=== PATIENT | female | born 1960 | race Caucasian/White ===

== ENCOUNTER 2018-04-10 00:52 | Inpatient (IN) | payer BC ==
[2018-04-10] VITALS (19 sets, daily range): BP systolic 107–174; BP diastolic 53–129
[~2018-04-10] VITALS: Ht 157.5 cm; Wt 87.9 kg
[2018-04-10 02:10] LABS: HEMATOCRIT 42.6 % (36.0-46.0); HEMOGLOBIN 15.1 G/DL (11.9-15.5); MCH 33.8 PG (29.0-34.0); MCHC 35.4 G/DL (30.0-36.0); MCV 95.3 FL (83-99); PLATELET COUNT 333 K/uL (156-360); RBC DIS.WIDTH-CV 12.5 % (11.8-14.6); RBC DIS.WIDTH-SD 43.1 % (39-53); RED BLOOD COUNT 4.47 M/uL (3.80-5.20); WHITE BLOOD COUNT 28.3 K/uL (4.1-10.2)
[2018-04-10 02:20] LABS: ALBUMIN 4.1 g/dL (3.2-4.8); CHLORIDE 100 mEq/L (99-109); POTASSIUM 3.3 mEq/L (3.7-5.4); SODIUM 136 mEq/L (136-147)
[2018-04-10 02:22] LABS: GLUCOSE 150 mg/dL (70-99); TOTAL PROTEIN 8.4 g/dL (6.4-8.3)
[2018-04-10 02:24] LABS: TOTAL BILIRUBIN 1.1 mg/dL (0.0-1.0)
[2018-04-10 02:26] LABS: ALKALINE PHOSPHATASE 94 IU/L (3-129); CREATININE 0.7 mg/dL (0.6-1.3); GFR ESTIMATE (CALCULATED) > 59 mL/min/
[2018-04-10 02:27] LABS: UREA NITROGEN (BUN) 12 mg/dL (9-23)
[2018-04-10 02:28] LABS: AST (GOT) 37 IU/L (2-34)
[2018-04-10 02:29] LABS: ALT (GPT) 37 IU/L (3-49)
[2018-04-10 02:41] LABS: MONOSPOT (MONONUCLEOSIS SEROL) NEGATIVE
[2018-04-10 06:38] LABS: INTER. NORMALIZED RATIO 1.2
[2018-04-10 06:41] LABS: PTT 30.7 SEC (25-37)
[2018-04-10 09:06] LABS: DEVICE VENT; FI02 50 %; MODE SPONT PS; SITE LR; TOTAL RESP RATE 24 resp/min
[2018-04-10 09:07] LABS: BASE EXCESS -1.8 mEq/L (-3 to +3); BICARBONATE 23.1 mEq/L (22-26); METHEMOGLOBIN 1.2 % (0-1.5); PCO2 39 mm Hg (35-45); PEEP 5 CM/H20; PO2 79 mm Hg (80-100); PRES. SUPPORT 10 CM/H2O; pH 7.38 (7.35-7.45)
[2018-04-10 10:15] LABS: TRIGLYCERIDES 118 MG/DL (Normal: <150)
[2018-04-11] VITALS (18 sets, daily range): BP systolic 115–167; BP diastolic 59–101
[2018-04-11 05:48] LABS: HEMATOCRIT 41.4 % (36.0-46.0); HEMOGLOBIN 13.7 G/DL (11.9-15.5); MCH 32.9 PG (29.0-34.0); MCHC 33.1 G/DL (30.0-36.0); PLATELET COUNT 329 K/uL (156-360); RBC DIS.WIDTH-CV 12.8 % (11.8-14.6); RBC DIS.WIDTH-SD 46.5 % (39-53); RED BLOOD COUNT 4.17 M/uL (3.80-5.20); WHITE BLOOD COUNT 24.2 K/uL (4.1-10.2)
[2018-04-11 05:49] LABS: MCV 99.3 FL (83-99)
[2018-04-11 06:52] LABS: CHLORIDE 109 MEQ/L (99-109); CREATININE 0.5 MG/DL (0.6-1.3); GFR ESTIMATE (CALCULATED) > 59 mL/min/; SODIUM 141 MEQ/L (136-147); UREA NITROGEN (BUN) 11 mg/dL (9-23)
[2018-04-11 06:55] LABS: GLUCOSE 264 mg/dL (70-99)
[2018-04-11] MEDS ORDERED: LISINOPRIL-HCT1 EAC3 PO (10:20)
[2018-04-11] MEDS ORDERED: ROSUVASTATIN CAL5 MG PO (10:20)
[2018-04-11] MEDS ORDERED: AZITHROMYCIN250 MG PO (10:21)
[2018-04-11] MEDS ORDERED: PREDNISONE20 MG PO (10:22)
[2018-04-12] VITALS: BP 104/55
[2018-04-12 02:00] VITALS: BP 113/60
[2018-04-12 05:00] VITALS: BP 117/50
[2018-04-12 08:01] VITALS: BP 123/62
[2018-04-12 11:23] LABS: HEMATOCRIT 41.2 % (36.0-46.0); HEMOGLOBIN 14.2 G/DL (11.9-15.5); MCH 33.6 PG (29.0-34.0); MCHC 34.5 G/DL (30.0-36.0); MCV 97.6 FL (83-99); PLATELET COUNT 341 K/uL (156-360); RBC DIS.WIDTH-CV 12.8 % (11.8-14.6); RED BLOOD COUNT 4.22 M/uL (3.80-5.20); WHITE BLOOD COUNT 25.8 K/uL (4.1-10.2)
[2018-04-12] MEDS ORDERED: CLEOCIN300 MG PO (13:20)
== END 2018-04-12 14:01 | disposition home or self-care (01) | DRG 853 ==
LOC: EME 00:52 → ENRESERV 06:25 → 4WEST 06:29 → EDOF 06:29 → ENRESERV 06:30 → CANRESERV 06:30 → 4WEST 08:00
PROVIDERS: Emergency Medicine; Internal Medicine Pulmonary Disease; Physician Assistant; Surgery
DX: A41.9 Sepsis, unspecified organism (principal); J36 Peritonsillar abscess; J96.00 Acute respiratory failure, unspecified whether with hypoxia or hypercapnia; J05.10 Acute epiglottitis without obstruction; E04.2 Nontoxic multinodular goiter; K11.20 Sialoadenitis, unspecified; K11.5 Sialolithiasis; E78.5 Hyperlipidemia, unspecified; I10 Essential (primary) hypertension; E66.9 Obesity, unspecified; Z68.35 Body mass index [BMI] 35.0-35.9, adult; F17.200 Nicotine dependence, unspecified, uncomplicated; Z90.710 Acquired absence of both cervix and uterus
CPT/HCPCS: 36600; 70491; 71046; 80048; 80053; 82948; 83605; 84478; 85027; 85610; 85730; 86308; 86850; 86900; 86901; 87040; 87070; 87075; 87076; 87081; 87185; 87205; 87641; 87651 90; 87801; 93971; 94002; 94003; 94640; 94799; 99281; 99285; C1769; J0330; J1100; J1200; J1644; J1815; J2250; J2405; J2704; J3010; J7030; S0028